=== PATIENT | female | born 1970 | race Caucasian/White ===

== ENCOUNTER 2020-06-25 10:56 | Inpatient (IN) ==
[2020-06-25 12:03] LABS: Basophils % 0.3 %; Eosinophils # 0.1 K/mcL (0.0-0.6); Eosinophils % 1.3 %; Hematocrit 46.4 % (35.3-44.9); Hemoglobin 15.7 g/dL (11.5-15.4); Immature Granulocytes % 0.4 % (0-4); Lymphocytes # 2.4 K/mcL (0.6-4.6); Lymphocytes % 34.4 %; Mean Corpuscular HGB Conc 33.8 g/dL (31.6-35.5); Mean Corpuscular Hemoglobin 30.2 pg (28.0-33.3); Mean Corpuscular Volume 89.2 fL (83.0-100.0); Mean Platelet Volume 9.8 fL (9.4-12.4); Monocytes # 0.3 K/mcL (0.0-1.3); Monocytes % 4.7 %; Neutrophils # 4.2 K/mcL (1.6-8.9); Platelet Count 271 K/mcL (140-400); Red Cell Distribution Width 12.2 % (11.5-14.5); Segmented Neutrophils % 58.9 %; White Blood Count 7.1 K/mcL (4.3-11.1)
[2020-06-25 12:10] LABS: Bilirubin,Urine Negative (Negative); Blood,Urine Trace (Negative); Clarity,Urine Clear (Clear); Color,Urine Light-Yellow (Yellow); Glucose,Urine (UA) Normal (Normal); Ketones,Urine Negative (Negative); Leukocyte Esterase,Urine Negative (Negative); Mucus,Urine Few per lpf (None-Few); Nitrite,Urine Negative (Negative); Protein,Urine 50 mg/dL (Neg-Trace); Specific Gravity,Urine > 1.030 (1.010-1.025); Squamous Epithelial Cell,Urine Moderate per hpf (None-Few); Urobilinogen,Urine Normal (Normal); WBC,Urine 0-3 per hpf (0-3)
[2020-06-25 12:13] LABS: Amphetamine Screen,Urine Negative ng/mL (Cutoff=1000); Barbiturate Screen,Urine Negative ng/mL (Cutoff=200); Benzodiazepines Screen,Urine Positive ng/mL (Cutoff=200); Cannabinoid Screen,Urine Negative ng/mL (Cutoff = 50); Cocaine Screen,Urine Negative ng/mL (Cutoff= 300); Opiate Screen,Urine Negative ng/mL (Cutoff=300); Phencyclidine Screen,Urine Negative ng/mL (Cutoff=25)
[2020-06-25 12:25] LABS: Acetaminophen < 10 mcg/mL (10-20); BUN/Creatinine Ratio 20 (6-26); Blood Urea Nitrogen 14 mg/dL (6-20); Calcium 9.9 mg/dL (8.6-10.3); Carbon Dioxide 25 mEq/L (23-29); Chloride 102 mEq/L (98-107); Ethanol < 10 mg/dL (Less than 10); Glucose 104 mg/dL (70-105); Osmolality,Calculated 283 (280-300); Potassium 3.9 mEq/L (3.5-5.1); Salicylate < 2.5 mg/dL (15.0-30.0); Sodium 136 mEq/L (136-145); eGFR For African Americans > 60 (> 60); eGFR For Non-African Americans > 60 (> 60)
[2020-06-25] MEDS ORDERED: haloperidoL 5 MG TABLET PO PRN (13:43)
[2020-06-25] MEDS ORDERED: Mag Hydrox/Al Hydrox/Simeth 30 ML UDC PO PRN (13:43)
[2020-06-25] MEDS ORDERED: MOM Conc 10 ML UD.LIQ PO PRN (13:43)
[2020-06-25] MEDS ORDERED: Haloperidol Lactate 5 MG/ML VIAL IM PRN (13:43)
[2020-06-25] MEDS ORDERED: QUEtiapine Fumarate 25 MG TABLET PO PRN (13:43)
[2020-06-25] MEDS ORDERED: *HR* LORazepam 2 MG/ML VIAL IM PRN (13:43)
[2020-06-25] MEDS ORDERED: *HR* LORazepam 1 MG TABLET PO PRN (13:43)
[2020-06-25] MEDS: *HR* LORazepam 0.5 MG TABLET PO SCH ×2 (14:25→20:38)
[2020-06-25] MEDS: Acetaminophen 325 MG TABLET PO PRN ×2 (14:25→22:03)
[2020-06-25] MEDS: cloNIDine HCL 0.1 MG TABLET PO PRN ×2 (17:17→23:25)
[2020-06-25] MEDS ORDERED: cloNIDine HCL 0.1 MG TABLET PO STA (17:57)
[2020-06-25] MEDS: lisinopriL 5 MG TABLET PO SCH (18:55)
[2020-06-25] MEDS: hydrOXYzine pamoate 25 MG CAPSULE PO PRN (22:03)
[2020-06-26] MEDS: hydrOXYzine pamoate 25 MG CAPSULE PO PRN ×3 (01:37→20:12)
[2020-06-26] MEDS: traZODone 50 MG TABLET PO PRN ×2 (01:40→21:51)
[2020-06-26] MEDS: cloNIDine HCL 0.1 MG TABLET PO PRN ×3 (05:45→20:42)
[2020-06-26] MEDS: Acetaminophen 325 MG TABLET PO PRN ×2 (05:46→17:44)
[2020-06-26] MEDS: *HR* LORazepam 0.5 MG TABLET PO SCH ×3 (07:36→20:12)
[2020-06-26] MEDS: lisinopriL 5 MG TABLET PO SCH (07:36)
[2020-06-26] MEDS ORDERED: *HR* LORazepam 1 MG TABLET PO ONE (08:17)
[2020-06-26] MEDS ORDERED: rOPINIRole 1 MG TABLET PO SCH (21:00)
[2020-06-26] MEDS ORDERED: NON-FORMULARY MEDICATION 1 EACH EACH (Ropinirole Hcl [Requip] 0.5 MG) PO SCH (21:00)
[2020-06-27] MEDS: Acetaminophen 325 MG TABLET PO PRN ×2 (00:42→11:09)
[2020-06-27] MEDS: traZODone 50 MG TABLET PO PRN (00:42)
[2020-06-27] MEDS: cloNIDine HCL 0.1 MG TABLET PO PRN (02:42)
[2020-06-27] MEDS: hydrOXYzine pamoate 25 MG CAPSULE PO PRN (05:00)
[2020-06-27 09:14] VITALS: BP 135/95
[2020-06-27] MEDS: lisinopriL 5 MG TABLET PO SCH (09:35)
[2020-06-27] MEDS: *HR* LORazepam 0.5 MG TABLET PO SCH (09:36)
== END 2020-06-27 12:14 | disposition home or self-care (01) ==
LOC: EMEROOARM 10:56 → 1ANU 13:39
PROVIDERS: ADMIT Psychiatry & Neurology Psychiatry; ATTEND Psychiatry & Neurology Psychiatry

== ENCOUNTER 2021-01-23 14:48 | Observation (INO) ==
[2021-01-23 16:32] LABS: Basophils % 0.4 %; Hematocrit 42.3 % (35.3-44.9); Hemoglobin 14.3 g/dL (11.5-15.4); Immature Granulocytes % 0.3 % (0-4); Lymphocytes # 0.8 K/mcL (0.6-4.6); Lymphocytes % 12.3 %; Mean Corpuscular HGB Conc 33.8 g/dL (31.6-35.5); Mean Corpuscular Hemoglobin 31.4 pg (28.0-33.3); Mean Platelet Volume 10.4 fL (9.4-12.4); Monocytes # 0.1 K/mcL (0.0-1.3); Monocytes % 0.9 %; Neutrophils # 5.9 K/mcL (1.6-8.9); Platelet Count 310 K/mcL (140-400); Red Blood Count 4.55 M/mcL (3.82-4.97); Red Cell Distribution Width 12.6 % (11.5-14.5); Segmented Neutrophils % 86.1 %; White Blood Count 6.9 K/mcL (4.3-11.1)
[2021-01-23 16:44] LABS: Alanine Aminotransferase 128 Units/L (7-52); Albumin 4.7 g/dL (3.5-5.7); Albumin/Globulin Ratio 1.8 (1.1-2.2); Alkaline Phosphatase 144 Units/L (34-104); Aspartate Amino Transferase 34 Units/L (13-39); BUN/Creatinine Ratio 27 (6-26); Bilirubin,Total 0.2 mg/dL (0.3-1.0); Blood Urea Nitrogen 21 mg/dL (6-20); Calcium 9.6 mg/dL (8.6-10.3); Carbon Dioxide 25 mEq/L (23-29); Chloride 103 mEq/L (98-107); Globulin 2.6 g/dL (2.4-3.5); Glucose 169 mg/dL (70-105); Osmolality,Calculated 291 (280-300); Potassium 3.6 mEq/L (3.5-5.1); Sodium 137 mEq/L (136-145); Total Protein 7.3 g/dL (6.4-8.9); Troponin I < 0.03 ng/mL (< 0.04); eGFR For African Americans > 60 (> 60); eGFR For Non-African Americans > 60 (> 60)
[2021-01-23] MEDS ORDERED: Aspirin 325 MG TABLET PO ONE (16:55)
[2021-01-23] MEDS ORDERED: Metoclopramide 10 MG/2 ML VIAL IVP ONE (16:56)
[2021-01-23] MEDS ORDERED: Perflutren Lipid Microsphere 1.3 ML in 0.9 % Sodium Chloride 8.7 ML IVP PRN (20:32)
[2021-01-23] MEDS ORDERED: Nitroglycerin 0.4 MG TAB.SUBL SL PRN (20:34)
[2021-01-23] MEDS ORDERED: Naloxone 0.4 MG/ML INJ IVP PRN (20:37)
[2021-01-23] MEDS ORDERED: Prochlorperazine 10 MG/2 ML VIAL IVP PRN (20:40)
[2021-01-23] MEDS ORDERED: *HR* OxyCODONE Immed Rel 5 MG TABLET PO PRN (21:41)
[2021-01-23] MEDS ORDERED: Ibuprofen 600 MG TABLET PO ONE (21:43)
[2021-01-23] MEDS ORDERED: *HR* Dextrose 50 % in Water (Vial) 50 ML VIAL IVP PRN (21:45)
[2021-01-23] MEDS ORDERED: Dextrose Gel 15 GM/37.5 ML TUBE PO PRN ×2 (21:45)
[2021-01-23] MEDS ORDERED: D5% in Water 1,000 ML IVC PRN (21:45)
[2021-01-23] MEDS ORDERED: SUMAtriptan succinate 50 MG TABLET PO PRN (21:51)
[2021-01-23] MEDS ORDERED: Insulin LISPRO 300 UNITS/3 ML VIAL SUBQ SCH (22:00)
[2021-01-23] MEDS ORDERED: rOPINIRole 0.25 MG TABLET PO SCH (22:00)
[2021-01-23] MEDS: *HR* Heparin 5,000 UNIT/ML VIAL SQ SCH (22:06)
[2021-01-23 22:54] LABS: Amphetamine Screen,Urine Negative ng/mL (Cutoff=1000); Barbiturate Screen,Urine Negative ng/mL (Cutoff=200); Benzodiazepines Screen,Urine Positive ng/mL (Cutoff=200); Cannabinoid Screen,Urine Negative ng/mL (Cutoff = 50); Cocaine Screen,Urine Negative ng/mL (Cutoff= 300); Opiate Screen,Urine Negative ng/mL (Cutoff=300); Phencyclidine Screen,Urine Negative ng/mL (Cutoff=25)
[2021-01-24 04:39] LABS: Hematocrit 38.6 % (35.3-44.9); Hemoglobin 13.1 g/dL (11.5-15.4); Mean Corpuscular HGB Conc 33.9 g/dL (31.6-35.5); Mean Corpuscular Hemoglobin 31.8 pg (28.0-33.3); Mean Corpuscular Volume 93.7 fL (83.0-100.0); Mean Platelet Volume 10.2 fL (9.4-12.4); Platelet Count 293 K/mcL (140-400); Red Blood Count 4.12 M/mcL (3.82-4.97); Red Cell Distribution Width 12.4 % (11.5-14.5); White Blood Count 9.8 K/mcL (4.3-11.1)
[2021-01-24 04:59] LABS: Prothrombin Time 11.3 Seconds (9.4-12.1)
[2021-01-24 05:00] LABS: BUN/Creatinine Ratio 38 (6-26); Blood Urea Nitrogen 24 mg/dL (6-20); Calcium 9.2 mg/dL (8.6-10.3); Carbon Dioxide 26 mEq/L (23-29); Chloride 105 mEq/L (98-107); Chol/HDL Ratio 5.3 (0-4.9); Cholesterol 207 mg/dL (< 200); Glucose 92 mg/dL (70-105); HDL Cholesterol 39 mg/dL (40-59); LDL Cholesterol,Calculated 115 mg/dL (< 100); Magnesium 2.2 mg/dL (1.6-2.6); Osmolality,Calculated 290 (280-300); Potassium 3.6 mEq/L (3.5-5.1); Sodium 138 mEq/L (136-145); Triglycerides 265 mg/dL (< 150); eGFR For African Americans > 60 (> 60); eGFR For Non-African Americans > 60 (> 60)
[2021-01-24 05:02] LABS: Activated Partial Thrombo Time 23.6 Seconds (26.0-36.0)
[2021-01-24] MEDS: *HR* Heparin 5,000 UNIT/ML VIAL SQ SCH (05:28)
[2021-01-24 05:29] LABS: Estimated Average Glucose 103 mg/dl; Hemoglobin A1C 5.2 %
[2021-01-24 05:55] LABS: Hepatitis B Surface Antigen Nonreactive (Nonreactive)
[2021-01-24] MEDS ORDERED: Regadenoson 0.4 MG/5 ML SYRINGE IVP ONE (06:22)
[2021-01-24 06:25] LABS: Hepatitis B Core IgM Nonreactive (Nonreactive); Hepatitis C Virus Antibody Nonreactive (Nonreactive)
[2021-01-24 06:26] LABS: Hepatitis A Antibody IgM Nonreactive (Nonreactive)
[2021-01-24] MEDS: Insulin LISPRO 300 UNITS/3 ML VIAL SUBQ SCH ×2 (08:31→12:57)
[2021-01-24] MEDS ORDERED: clonazePAM 1 MG TABLET PO SCH (09:00)
[2021-01-24] MEDS ORDERED: Aspirin Enteric Coated 81 MG Tablet PO SCH (09:00)
[2021-01-24] MEDS ORDERED: lisinopriL 20 MG TABLET PO SCH (09:00)
[2021-01-24] MEDS ORDERED: valACYclovir 500 MG TABLET PO SCH (09:00)
[2021-01-24] MEDS ORDERED: Gabapentin 300 MG CAPSULE PO SCH (09:00)
[2021-01-24] MEDS ORDERED: lamoTRIgine 100 MG TABLET PO SCH (10:00)
[2021-01-24 11:13] VITALS: BP 115/74
[2021-01-24] MEDS ORDERED: RAMELTEON 8 MG PO SCH (21:00)
== END 2021-01-24 13:20 | disposition left against medical advice (07) ==
LOC: EMEROOARM 14:48 → 3BNU 14:48 → SUATTDRO 18:12 → 3BNU 18:44
PROVIDERS: ADMIT Internal Medicine; ATTEND Internal Medicine

== ENCOUNTER 2021-04-26 13:16 | Observation (INO) ==
[2021-04-26] MEDS ORDERED: 0.9 % Sodium Chloride 1,000 ML IVC ONE ×3 (13:31→17:15)
[2021-04-26 14:09] LABS: Bacteria,Urine Few per hpf (None-Few); Bilirubin,Urine Negative (Negative); Blood,Urine Negative (Negative); Clarity,Urine Clear (Clear); Color,Urine Yellow (Yellow); Glucose,Urine (UA) Normal (Normal); Hyaline Casts,Urine Few per lpf (None Seen); Ketones,Urine Negative (Negative); Leukocyte Esterase,Urine Small (Negative); Mucus,Urine Moderate per lpf (None-Few); Nitrite,Urine Negative (Negative); PH,Urine 5.5 pH Units (5.0-8.0); Protein,Urine Trace mg/dL (Neg-Trace); Specific Gravity,Urine > 1.030 (1.010-1.025); Squamous Epithelial Cell,Urine Moderate per hpf (None-Few); Urobilinogen,Urine Normal (Normal)
[2021-04-26 14:11] LABS: Basophils # 0.1 K/mcL (0.0-0.2); Basophils % 0.4 %; Eosinophils # 0.3 K/mcL (0.0-0.6); Eosinophils % 2.7 %; Hematocrit 39.8 % (35.3-44.9); Hemoglobin 13.4 g/dL (11.5-15.4); Immature Granulocytes % 0.5 % (0-4); Lymphocytes # 4.6 K/mcL (0.6-4.6); Lymphocytes % 36.5 %; Mean Corpuscular HGB Conc 33.7 g/dL (31.6-35.5); Mean Corpuscular Hemoglobin 31.4 pg (28.0-33.3); Mean Corpuscular Volume 93.2 fL (83.0-100.0); Mean Platelet Volume 9.5 fL (9.4-12.4); Monocytes # 0.5 K/mcL (0.0-1.3); Monocytes % 4.1 %; Platelet Count 330 K/mcL (140-400); Red Blood Count 4.27 M/mcL (3.82-4.97); Red Cell Distribution Width 12.8 % (11.5-14.5); Segmented Neutrophils % 55.8 %; White Blood Count 12.5 K/mcL (4.3-11.1)
[2021-04-26 14:28] LABS: BUN/Creatinine Ratio 12 (6-26); Blood Urea Nitrogen 18 mg/dL (6-20); Calcium 9.3 mg/dL (8.6-10.3); Carbon Dioxide 24 mEq/L (23-29); Chloride 103 mEq/L (98-107); Glucose 79 mg/dL (70-105); Osmolality,Calculated 281 (280-300); Potassium 3.9 mEq/L (3.5-5.1); Sodium 135 mEq/L (136-145); Troponin I < 0.03 ng/mL (< 0.04); eGFR For African Americans 44 (> 60); eGFR For Non-African Americans 36 (> 60)
[2021-04-26] MEDS ORDERED: Isovue-370 500 ML BOTTLE IVP ONE (16:35)
[2021-04-26] MEDS ORDERED: Hydrocortisone Sodium Succ 100 MG/2 ML VIAL IVP ONE (19:12)
[2021-04-26] MEDS ORDERED: Acetaminophen 325 MG TABLET PO PRN (19:57)
[2021-04-26] MEDS ORDERED: Ondansetron 4 MG/2 ML VIAL IVP PRN (19:57)
[2021-04-26] MEDS ORDERED: Melatonin 3 MG TABLET PO PRN (19:57)
[2021-04-26] MEDS ORDERED: Naloxone 0.4 MG/ML INJ IVP PRN (19:57)
[2021-04-26] MEDS ORDERED: 0.9 % Sodium Chloride 1,000 ML IVC SCH (20:00)
[2021-04-26] MEDS ORDERED: clonazePAM 0.5 MG TABLET PO ONE (23:17)
[2021-04-27 02:40] LABS: Protein/Creatinine Ratio,Urine 0.1 mg/mg (0.00-0.20)
[2021-04-27 07:15] VITALS: BP 104/68
[2021-04-27 08:50] LABS: Basophils % 0.3 %; Eosinophils # 0.2 K/mcL (0.0-0.6); Eosinophils % 1.7 %; Hematocrit 34.4 % (35.3-44.9); Hemoglobin 11.9 g/dL (11.5-15.4); Immature Granulocytes % 0.4 % (0-4); Lymphocytes # 3.8 K/mcL (0.6-4.6); Lymphocytes % 35.9 %; Mean Corpuscular HGB Conc 34.6 g/dL (31.6-35.5); Mean Corpuscular Hemoglobin 32.2 pg (28.0-33.3); Mean Corpuscular Volume 93.2 fL (83.0-100.0); Mean Platelet Volume 9.9 fL (9.4-12.4); Monocytes # 0.5 K/mcL (0.0-1.3); Monocytes % 4.6 %; Neutrophils # 6.1 K/mcL (1.6-8.9); Platelet Count 292 K/mcL (140-400); Red Blood Count 3.69 M/mcL (3.82-4.97); Red Cell Distribution Width 12.6 % (11.5-14.5); Segmented Neutrophils % 57.1 %; White Blood Count 10.7 K/mcL (4.3-11.1)
[2021-04-27 09:14] LABS: BUN/Creatinine Ratio 15 (6-26); Blood Urea Nitrogen 11 mg/dL (6-20); Calcium 8.7 mg/dL (8.6-10.3); Carbon Dioxide 23 mEq/L (23-29); Chloride 109 mEq/L (98-107); Glucose 100 mg/dL (70-105); Osmolality,Calculated 283 (280-300); Potassium 3.9 mEq/L (3.5-5.1); Sodium 137 mEq/L (136-145); eGFR For African Americans > 60 (> 60); eGFR For Non-African Americans > 60 (> 60)
== END 2021-04-27 10:29 | disposition home or self-care (01) ==
LOC: 2NENU 13:16 → EMEROOARM 13:16 → 2NENU 20:22
PROVIDERS: ADMIT Family Medicine; ATTEND Family Medicine